=== PATIENT | male | born 1965 | race Two or more races ===

== ENCOUNTER 2019-11-17 17:31 | Emergency (ER) | payer MEDICAID ==
[~2019-11-17] VITALS: Ht 165.1 cm; Wt 69.4 kg
[2019-11-17 18:25] VITALS: BP 110/77
== END 2019-11-17 20:51 | disposition home or self-care (01) ==
LOC: ED 17:31
DX: S80.811A Abrasion, right lower leg, initial encounter (principal); W54.0XXA Bitten by dog, initial encounter; Y93.89 Activity, other specified; Y92.89 Other specified places as the place of occurrence of the external cause; Y99.8 Other external cause status
CPT/HCPCS: 90715